=== PATIENT | female | born 1960 | race Caucasian/White ===

== ENCOUNTER 2021-12-06 10:47 | Emergency (ER) | payer OTHER ==
[2021-12-06 11:57] LABS: RED BLOOD COUNT 4.79 M/UL (4.00-5.10); WHITE BLOOD COUNT 4.1 K/UL (4.5-11.0)
[2021-12-06 12:19] LABS: BUN/CREATININE RATIO 16 (0-10)
[2021-12-06] MEDS ORDERED: ZOFRAN ODT 4 MG4 MG GT (15:08)
== END 2021-12-06 16:02 | disposition home or self-care (01) ==
LOC: ER1 10:47
PROVIDERS: Physician Assistant
DX: B34.9 Viral infection, unspecified (principal); J18.9 Pneumonia, unspecified organism; E78.5 Hyperlipidemia, unspecified; Z88.2 Allergy status to sulfonamides
CPT/HCPCS: 71045; 80053; 81001; 84484; 85025; 85379; 85610; 93005; 96374; 96375; 99284; J0456; J2405; J7030; Q9967